=== PATIENT | male | born 1985 | race African-American/Black ===

== ENCOUNTER 2021-06-18 04:11 | Emergency (ER) | payer SELFPAY ==
[2021-06-18] MEDS ORDERED: Ketorolac Tromethamine 30 MG/ML VIAL ONE (04:37)
== END 2021-06-18 05:19 | disposition home or self-care (01) ==
LOC: ERS 04:11
DX: M25.512 Pain in left shoulder (principal); F17.210 Nicotine dependence, cigarettes, uncomplicated; Z79.899 Other long term (current) drug therapy
CPT/HCPCS: 96372; J1885